=== PATIENT | female | born 1995 | race Caucasian/White ===

== ENCOUNTER 2018-08-05 16:07 | Emergency (ER) ==
[~2018-08-05] VITALS: Ht 180.3 cm; Wt 70.5 kg
== END 2018-08-05 16:50 | disposition left against medical advice (07) ==
LOC: COL.ER 16:07
DX: M54.5 Low back pain (principal); W00.0XXA Fall on same level due to ice and snow, initial encounter

== ENCOUNTER 2018-08-19 19:10 | Emergency (ER) | payer BC ==
[~2018-08-19] VITALS: Ht 180.3 cm; Wt 70.5 kg
[2018-08-19 19:13] VITALS: TEMP 98.8
[2018-08-19 19:36] LABS: BASO # 0.1 (0.0-0.2); BASO % 0.6 % (0.0-2.0); EOS # 0.1 (0.0-0.7); EOS % 0.5 % (0-4.0); GRAN # 6.8 (1.4-6.5); GRAN % 70.2 % (42.2-75.2); HEMATOCRIT 44.5 % (37.0-47.0); HEMOGLOBIN 14.8 g/dl (12.5-16.0); LYMPH # 2.1 (1.2-3.4); LYMPH % 21.3 % (20.0-51.0); MEAN CELL VOLUME 90 fl (80.0-100.0); MEAN CORPUSCULAR HEMOGLOBIN 30 pg (27.0-31.0); MEAN CORPUSCULAR HGB CONC 33 g/dl (33.0-37.0); MEAN PLATELET VOLUME 10.9 fl (7.4-10.4); MONO # 0.7 (0.1-0.6); MONO % 7.3 % (1.7-9.3); PLATELET COUNT 260 K/mm3 (130-400); RED BLOOD COUNT 4.96 M/mm3 (4.10-5.30); REDCELL DISTRIBUTION WIDTH-CV 12.8 % (11.5-14.5)
[2018-08-19 19:44] LABS: BILIRUBIN,TOTAL 0.2 mg/dL (0.0-1.0); CREATININE, serum 0.66 mg/dL (0.52-1.25); POTASSIUM 3.6 mmol/L (3.4-5.0)
[2018-08-19] MEDS ORDERED: LAMICTAL 100MG100 MG PO (20:28)
[2018-08-19] MEDS ORDERED: ULTRAM 50MG TAB50 MG PO (20:28)
[2018-08-19] MEDS ORDERED: ATARAX50 MG PO (20:28)
[2018-08-19] MEDS ORDERED: LAMICTAL200 MG PO (20:29)
[2018-08-19] MEDS ORDERED: PERCOCET 325 MG1 TA2 PO (22:08)
[2018-08-19] MEDS ORDERED: ATIVAN 0.50.5 MG/TAB PO (22:08)
[2018-08-19 22:50] VITALS: BP 140/80; PULSE 88
[2018-08-20] MEDS ORDERED: MEDROL 4MG DOSPA4 MG PO (01:20)
== END 2018-08-19 22:50 | disposition home or self-care (01) ==
LOC: COL.ER 19:10
PROVIDERS: Family Medicine
DX: Q79.6 Ehlers-Danlos syndromes (principal); G89.29 Other chronic pain; M54.5 Low back pain
CPT/HCPCS: J1170; J2550; J3010; J7030; Q9967

== ENCOUNTER 2018-08-30 23:28 | Emergency (ER) | payer BC ==
[~2018-08-30] VITALS: Ht 180.3 cm; Wt 70.5 kg
[~2018-08-30 23:28] MED LIST: ATARAX50 MG PO; ATIVAN 0.50.5 MG/TAB PO; LAMICTAL 100MG100 MG PO; LAMICTAL200 MG PO; MEDROL 4MG DOSPA4 MG PO; PERCOCET 325 MG1 TA2 PO; ULTRAM 50MG TAB50 MG PO
[2018-08-30 23:31] VITALS: BP 129/84; TEMP 98
[2018-08-31] MEDS ORDERED: ZOFRAN 4MG T4 MG/TAB PO ×2 (01:21)
[2018-08-31] MEDS ORDERED: PHENERGAN 25 TA25 MG PO (01:21)
[2018-08-31] MEDS ORDERED: ZOFRAN ODT4 MG PO (01:25)
[2018-08-31 01:35] VITALS: PULSE 74
== END 2018-08-31 01:35 | disposition home or self-care (01) ==
LOC: COL.ER 23:28
DX: R11.2 Nausea with vomiting, unspecified (principal); R51 Headache; T40.2X5A Adverse effect of other opioids, initial encounter; F17.290 Nicotine dependence, other tobacco product, uncomplicated; Z79.891 Long term (current) use of opiate analgesic; Z88.8 Allergy status to other drugs, medicaments and biological substances
CPT/HCPCS: J1885; J2550